=== PATIENT | female | born 1975 | race Caucasian/White ===

== ENCOUNTER 2017-05-22 10:27 | Outpatient (CLI) | payer OTHER ==
[~2017-05-22] VITALS: Ht 175.3 cm; Wt 79.8 kg
[2017-05-22 11:19] VITALS: BP 124/88
[2017-05-22 11:47] LABS: BASOPHILS # (AUTO) 0.1 10^3/uL (0.0-0.1); BASOPHILS % (AUTO) 1 % (0-10); EOSINOPHILS # (AUTO) 0.1 10^3/uL (0.0-0.3); EOSINOPHILS % (AUTO) 1 % (0-10); LYMPHOCYTES # (AUTO) 2.2 X 10^3 (1.0-4.0); LYMPHOCYTES % (AUTO) 29 % (12-44); MEAN CORPUSCULAR HEMOGLOBIN 32 PG (25-34); MEAN CORPUSCULAR HGB CONC 34 G/DL (32-36); MEAN CORPUSCULAR VOLUME 94 FL (80-99); MEAN PLATELET VOLUME 10.9 FL (7.4-10.4); MONOCYTES # (AUTO) 0.5 X 10^3 (0.0-1.0); MONOCYTES % (AUTO) 7 % (0-12); NEUTROPHILS # (AUTO) 4.9 X 10^3 (1.8-7.8); NEUTROPHILS % (AUTO) 63 % (42-75); PLATELET COUNT 192 10^3/uL (130-400); RED BLOOD COUNT 4.68 10^6/uL (4.35-5.85); RED CELL DISTRIBUTION WIDTH 12.2 % (10.0-14.5); WHITE BLOOD COUNT 7.7 10^3/uL (4.3-11.0)
[2017-05-23] MEDS ORDERED: IBUP-1773 PO ×2 (07:27)
[2017-05-23] MEDS ORDERED: Hydrocodone Bit/Acetaminophen PO ×2 (07:27)
[2017-05-23] MEDS ORDERED: SIME80TA16 PO ×2 (07:27)
[2017-05-23] MEDS ORDERED: DOCU100C37 PO ×2 (07:27)
== END 2017-05-22 16:13 | disposition home or self-care (01) ==
LOC: PREOP 10:27
PROVIDERS: ATTEND Obstetrics & Gynecology
DX: Z01.812 Encounter for preprocedural laboratory examination (principal); Z11.2 Encounter for screening for other bacterial diseases; R10.2 Pelvic and perineal pain; N93.9 Abnormal uterine and vaginal bleeding, unspecified; D25.9 Leiomyoma of uterus, unspecified
CPT/HCPCS: 36415; 85025; 87081

== ENCOUNTER 2017-05-23 06:00 | Day surgery (SDC) | payer OTHER ==
[~2017-05-23] VITALS: Ht 175.3 cm; Wt 79.8 kg
[2017-05-23] MEDS ORDERED: ROCURONIUM 50 MG/5 ML (ZEMURON) VIAL IV ONE (06:37)
[2017-05-23] MEDS ORDERED: DEXAMETHASONE 10 MG/ML (DECADRON) 1 ML VIAL ONE (06:37)
[2017-05-23] MEDS ORDERED: SEVOFLURANE (ULTANE) 15 ML INHAL SOLN ONE ×7 (06:37→08:36)
[2017-05-23] MEDS ORDERED: LIDOCAINE PF 2% 5 ML (XYLOCAINE) VIAL ONE (06:37)
[2017-05-23] MEDS ORDERED: ONDANSETRON 4 MG/2 ML (SDV) Z0FRAN ONE (06:37)
[2017-05-23] MEDS ORDERED: proPOfol 200 MG/20 ML (DIPRIVAN) VIAL IV ONE (06:37)
[2017-05-23] MEDS ORDERED: MIDAZOLAM 2 MG/2 ML (VERSED) VIAL ONE (06:38)
[2017-05-23] MEDS ORDERED: fentaNYL INJECTION 100 MCG/2 ML AMP ONE ×3 (06:38→09:01)
[2017-05-23] MEDS ORDERED: metroNIDAZOLE 500MG/100ML IVPB 100 ML IV ONE (06:45)
[2017-05-23] MEDS ORDERED: ceFAZolin 2 GM/50 ML NS 50 ML IV ONE (06:45)
[2017-05-23] MEDS ORDERED: metroNIDAZOLE 500MG/100ML IVPB 100 ML ONE (06:54)
[2017-05-23] MEDS ORDERED: ceFAZolin 2 GM/50 ML NS 50 ML ONE (06:54)
[2017-05-23] MEDS ORDERED: BUPIVACAINE 0.25% 30 ML (SENSORCAINE) VIAL ONE (07:08)
[2017-05-23] MEDS: LACTATED RINGERS 1,000 ML IV PRN ×2 (07:09→08:14)
[2017-05-23 07:19] VITALS: BP 121/81
--- NOTE | 2017-05-23 07:21 | Progress Note-Pre Operative ---
Pre-Operative Progress Note H&P Reviewed The H&P was reviewed, patient examined and no changes noted. Date Seen by Provider: May 23, 2017 Time Seen by Provider: 07:00 Date H&P Reviewed: May 23, 2017 Time H&P Reviewed: 07:05 Pre-Operative Diagnosis: CPP, Fibroid uterus TAI MACKEY DO May 23, 2017 7:21 am
--- NOTE | 2017-05-23 07:26 | Discharge Inst-Women's Service ---
Discharge Inst-Women's Serv Depart Medication/Instructions New, Converted or Re-Newed RX: RX on Chart Consults/Follow Up Additional Follow Up: Yes Orders/Referrals Dr. Elkins in 7-10 days and in 8 weeks Activity Activity: Activity as Tolerated Driving Instructions: You May Drive (do not drive this weekend, or while you are requiring hydrocodone for pain control) NO SMOKING: NO SMOKING Nothing Inside Vagina: No Douching, No [place], No Tampons Diet Discharge Diet: No Restrictions Symptoms to Report to : Bleeding Excessive, Pain Increased, Fever Over 101 Degrees F, Vaginal Bleeding Increase, Questions/Concerns For Any Problems or Questions: Contact Your Physician Skin/Wound Care Infection Signs and Symptoms: Increased Redness, Foul Odor of Wound, Increased Drainage, Skin Itchy or Has a Rash, Increased Swelling, Temperature Above 101 F Stitches/[place]/Dermabond: Dermabond, Care of Stitches Bathing Instructions: TAI Belcher DO May 23, 2017 07:26
[2017-05-23] MEDS ORDERED: DOCU100C37 PO ×2 (07:27)
[2017-05-23] MEDS ORDERED: Hydrocodone Bit/Acetaminophen PO ×2 (07:27)
[2017-05-23] MEDS ORDERED: SIME80TA16 PO ×2 (07:27)
[2017-05-23] MEDS ORDERED: IBUP-1773 PO ×2 (07:27)
[2017-05-23] MEDS ORDERED: ONDANSETRON 4 MG/2 ML (SDV) Z0FRAN IV PRN (07:30)
[2017-05-23] MEDS ORDERED: SIMETHICONE 80 MG (MYLICON) CHEW PO PRN (07:30)
[2017-05-23] MEDS ORDERED: HYDROmorphone (DILAUDID) 2 MG/ML VIAL IVP PRN (07:30)
[2017-05-23] MEDS ORDERED: ZOLPIDEM 5 MG (AMBIEN) TAB PO PRN (07:30)
[2017-05-23] MEDS ORDERED: CHLORASEPTIC LOZENGE MM PRN (07:30)
[2017-05-23] MEDS ORDERED: DOCUSATE SODIUM 100 MG (COLACE) CAP PO PRN (07:30)
[2017-05-23] MEDS ORDERED: ANTACID SUSP 30 ML UDC (MYLANTA) PO PRN (07:30)
[2017-05-23] MEDS ORDERED: MEPERIDINE (DEMEROL) INJ 50 MG/ML IVP PRN ×2 (07:45→12:45)
[2017-05-23] MEDS ORDERED: ONDANSETRON 4 MG/2 ML (SDV) Z0FRAN IVP PRN (07:45)
[2017-05-23] MEDS ORDERED: NEOSTIGMINE (BLOXIVERZ ) 1 MG/1ML 10 ML VIAL ONE (08:31)
[2017-05-23] MEDS ORDERED: GLYCOPYRROLATE 0.2 MG/ML (ROBINUL) 2 ML VIAL ONE (08:31)
[2017-05-23] MEDS: LACTATED RINGERS 1,000 ML IV SCH ×2 (09:34→11:28)
[2017-05-23] MEDS: KETOROLAC 30 MG/ML VIAL IV PRN ×2 (09:41→16:01)
[2017-05-23] MEDS: morphine INJ 10 MG/ML 1ML (SYR OR VIAL) IVP PRN ×2 (09:42→09:49)
[2017-05-23 10:33] VITALS: BP 124/71
[2017-05-23] MEDS: HYDROcodone/APAP 7.5 MG/325 MG (LORTAB, LORCET PLUS) TABLET PO PRN ×2 (12:41→17:30)
[2017-05-23] MEDS ORDERED: morphine INJ 10 MG/ML 1ML (SYR OR VIAL) IVP PRN (12:45)
--- NOTE | 2017-05-23 14:05 | OPERATIVE REPORT ---
DATE OF SERVICE: PREOPERATIVE DIAGNOSES: 1. A 42-year-old female with fibroid uterus. 2. Severe chronic pelvic pain. 3. Abnormal uterine bleeding. POSTOPERATIVE DIAGNOSES: 1. A 42-year-old female with fibroid uterus. 2. Severe chronic pelvic pain. 3. Abnormal uterine bleeding. PROCEDURE: Robotic-assisted total laparoscopic hysterectomy greater than 250 grams measuring 372 grams, a right salpingo-oophorectomy and a left salpingectomy. SURGEON: Sylvain Mackey DO ANESTHESIA: General endotracheal. EBL: Minimal. URINE OUTPUT: 75 mL, clear at the end of the procedure. FLUIDS: 1550 mL of lactated Ringer solution. FINDINGS: A bulky enlarged uterus measuring 372 grams on initial weight measurement in the OR. Grossly normal-appearing left ovary. Right ovary is cystic appearing in nature. Grossly normal bilateral fallopian tubes with evidence of previous tubal ligation. Adhesions of the sigmoid colon to the left adnexa and fallopian tube. SPECIMEN SENT: Uterus, bilateral fallopian tubes and right ovary. INDICATIONS FOR PROCEDURE: This 42-year-old female is a patient who initially came in for an annual well woman visit but was also dealing with chronic issues with pelvic pain . The patient is a nurse and works long shifts and would notice the longer throughout the shift she worked the more severe and significant her pelvic pain would be, to the point now that she is in so much pain That she was passing out at work. She has also noticed issues with her urinary frequency. The pelvic ultrasound revealed that there was a large 6 cm fibroid in the anterior left side of the uterus at the fundus, which could be compressing and pushing on her bladder. She is also noticing significant amount of discomfort with intercourse. We discussed more conservative management of fibroids including uterine artery embolization and Depo Lupron therapy; however, the patient wished to proceed with more definitive measures. She also had a family history of ovarian cancer; however, due to her smoking, I was hesitant to remove both of her ovaries and place the patient on hormone replacement therapy at this would be contraindicated with her smoking. So we discussed preservation of any normal-appearing ovarian structure; however removal of the remainder of the ovarian tissue and she was agreeable with this after the risk of possible ovarian cancer lifetime were reviewed with the patient. We discussed the risks of bleeding, infection, damage to any surrounding structures including, but not limited to bowel, bladder, ureter kidneys, pre and postoperative expectations, possible need for blood transfusion, risks from anesthesia, even , were discussed with the patient. We discussed with her the recovery timeframe and follow up. After all of her questions were answered, she was agreeable to proceed with robotic hysterectomy. It was scheduled at her next earliest convenience. In the preoperative area, it was reviewed with the patient, consent was obtained, and the patient was taken to the operating room. OPERATIVE REPORT IN DETAIL: Once in the operating room, general anesthesia was found to be adequate. She was placed in dorsal lithotomy position, prepped and draped in normal sterile fashion. A Tamayo catheter was placed using sterile technique. A weighted speculum was inserted in the patient's vagina. A right angle retractor was used to visualize the cervix and 0 Vicryl suture was placed in the anterior lip of the cervix and the retractor was removed. The suture was then left in place as my retraction point. I then gently sounded the uterine cavity, depth was found to be 8 cm. I selected an 8 cm Samantha uterine manipulator tip and a 4 cm colpotomy ring and assembled the Samantha uterine manipulator advancing the tip into the endometrial canal and deploying the balloon and advancing the colpotomy ring around the vaginal fornix. Once this was in place, manipulation was appreciated on bimanual examination. I removed all the other instruments from the patient's vagina and took my attention to the abdomen. After a change of gloves was performed, I infiltrated the area infraumbilically with 0.25% Marcaine and made an 8 mm incision using a knife. I directed a Veress needle through this incision until intraperitoneal placement was confirmed using a saline drop test. I proceeded with insufflation with CO2 gas and opening pressure of 6 mmHg was noted. I proceeded to maximum pressure of 15 mmHg and we planned to remove the Veress needle and introduce an 8-mm blunt da Jessy camera trocar. Once this was in place, I was able to confirm intraperitoneal placement using the da Jessy laparoscope. I then had the patient placed in steep Trendelenburg and able to visualize all the pelvic anatomy findings as described in my findings above. I then placed two lateral trocars approximately 8 cm lateral to my infraumbilical trocar. The skin was infiltrated with 0.25% Marcaine. Incisions were made with a knife and the trocars were placed under direct visualization of the laparoscope. Once these were in place without evidence of damage of any peritoneal structures, I then brought in the da Jessy robot and docked in the appropriate fashion, placing the vessel sealer in the left hand, the monopolar viola in the right hand. I then took my place at the operative console. I began the procedure by taking down filmy adhesions of the descending sigmoid colon to the left fallopian tube. Once these were taken down using monopolar shear, I then create a window in the left mesosalpinx using the monopolar viola and took this window laterally using the vessel sealer, amputating the fallopian tube from its surrounding connection of blood supply in the mesosalpinx. I then grasped the uteroovarian ligament. I bipolar cauterized this and transected it using the vessel sealer. I grasped the round ligament, bipolar cauterized this, and transected using the vessel sealer. I took the entire broad ligament at that point and took it down to the lower uterine segment using the vessel sealer, sealing and cutting using the sealer down the broad ligament. Once I was at the lower uterine segment, I separate the anterior and posterior leaflets of the broad ligament. The anterior leaf was taken down to the anterior vaginal fornix and the posterior leaf was taken down to the posterior vaginal fornix. This allowed me to skeletonize the uterine vessels laterally, which I bipolar cauterized and transected using the vessel sealer. I then took my attention to the right side where I grasped the infundibulopelvic ligament, bipolar cauterized and transected using the vessel sealer. I then grasped the round ligament, bipolar cauterized this and transected using the vessel sealer. I then was able to grasp the entire broad ligament and in a similar fashion, took it down to the lower uterine segment using the vessel sealer. I took the anterior leaflet around to my anterior vaginal fornix dissection from the left side and the posterior leaflet to the posterior vaginal fornix dissecting on the left side as well. This allowed me to skeletonize out the uterine vessels, which I bipolar cauterized and transected using the vessel sealer. I then performed a colpotomy at the 12 o'clock position using the monopolar viola and took this circumferentially around the vaginal fornix, amputating the cervix away from the vaginal fornix. The entire specimen was then removed in 1 piece through the vagina. I then proceeded to closing the vaginal cuff using 2-0 Vicryl suture in a [id number] fashion in the lateral vaginal apices, colposuspending them to the uterosacral ligaments. I then closed the remainder of the vaginal cuff using 2-0 V-Loc in a running fashion, after which there was no active bleeding noted from any of my dissection planes. I then undock the da Jessy robot and proceed with copiously irrigating the pelvis using normal saline. Once again there was no active bleeding from my dissection planes. I then placed FloSeal hemostatic agent over all my planes of dissection and have the patient taken out of steep Trendelenburg. In this process, I was able to visualize the appendix, which had some filmy adhesions to the right pelvic sidewall, but overall appeared normal. There was no density or nodularity noted. There was no thickening of the appendix either. At that point, I removed the lateral trocars under direct visualization of the laparoscope. The infraumbilical trocar was used to release insufflation and introduced 10 mL of 0.25% Marcaine into the peritoneal cavity for postoperative pain management. I then removed this trocar as well and closed the incision using 4-0 Monocryl in interrupted subcuticular stitches. Dermabond was applied to the incision and Band-Aids were placed over these. A Tamayo catheter was left in place. The patient tolerated the procedure well, sent to recovery in stable condition. Lap and sponge counts correct at the end of the procedure. Instrument count was correct as well. Two grams of Ancef and 500 mg of Flagyl were given preoperatively for infection prophylaxis. Job ID: [id number] DocumentID: [id number] Dictated Date: 05/23/2017 09:44:07 Coating Operator Date: 05/23/2017 12:22:06 Dictated By: SYLVAIN MACKEY DO
[2017-05-23 15:16] VITALS: BP 102/61
[2017-05-24] MEDS ORDERED: IBUPROFEN 600 MG (MOTRIN) TAB PO PRN
== END 2017-05-23 17:35 | disposition home or self-care (01) ==
LOC: SDC 06:00 → WS 10:20 → SDC 17:35
PROVIDERS: ATTEND Obstetrics & Gynecology
DX: D25.1 Intramural leiomyoma of uterus (principal); N80.0 Endometriosis of uterus; N83.11 Corpus luteum cyst of right ovary; N83.8 Other noninflammatory disorders of ovary, fallopian tube and broad ligament; N93.9 Abnormal uterine and vaginal bleeding, unspecified; R10.2 Pelvic and perineal pain; F17.210 Nicotine dependence, cigarettes, uncomplicated; Z80.41 Family history of malignant neoplasm of ovary
CPT/HCPCS: 84703; 86850; 86900; 86901; 94664

== ENCOUNTER 2020-01-01 09:36 | Emergency (ER) | payer OTHER ==
[~2020-01-01] VITALS: Ht 175 cm; Wt 70.0 kg
[~2020-01-01 09:36] MED LIST: DOCU100C37 PO; Hydrocodone Bit/Acetaminophen PO; IBUP-1773 PO; SIME80TA16 PO
[2020-01-01 09:45] VITALS: BP 140/70
--- NOTE | 2020-01-01 09:54 | ED Upper Extremity ---
General Chief Complaint: Laceration Stated Complaint: HAND LAC Source: patient History of Present Illness Date Seen by Provider: Jan 01, 2020 Time Seen by Provider: 09:48 Initial Comments 44-year-old female right handed was using a knife slipped causing a laceration to her ventral left index finger No other injury sustained aside from left index finger but did much better as time progressed and her complaints are limited to the index finger no deformity no swelling or ecchymosis Allergies and Home Medications Allergies Coded Allergies: No Known Drug Allergies (Unverified , 05/22/17) Home Medications Docusate Sodium 100 Mg Capsule, 100 MG PO BID PRN for CONSTIPATION-1ST LINE Prescribed by: TAI MACKEY on 05/23/17726 Ibuprofen 600 Mg Tablet, 600 MG PO Q6H PRN for PAIN-MODERATE Prescribed by: TAI MACKEY on 05/23/17726 Simethicone 80 Mg Tab.chew, 40 MG PO TID PRN for INDIGESTION 2ND LINE Prescribed by: TAI MACKEY on 05/23/17726 [Hydrocodone Bit/Acetaminophen] 1 EA TABLET, 2 EA PO Q6H PRN for Pain-See Instructions Prescribed by: TAI MACKEY on 05/23/17726 Patient Home Medication List Home Medication List Reviewed: Yes Review of Systems Constitutional: no symptoms reported EENTM: no symptoms reported Respiratory: no symptoms reported Cardiovascular: no symptoms reported Gastrointestinal: no symptoms reported Genitourinary: no symptoms reported Musculoskeletal: other (2 cm laceration ventral left index finger just proximal to the PIP) Skin: no symptoms reported Psychiatric/Neurological: No Symptoms Reported Past Pxrclfh-Cchpqk-Qpispa Hx Patient Social History Alcohol Use: Denies Use Recreational Drug Use: No Smoking Status: Former Smoker Type Used: Cigarettes 2nd Hand Smoke Exposure: No Recent Hopitalizations: No Physical Abuse: No Sexual Abuse: No Mistreated: No Fear: No Immunizations Up To Date Tetanus Booster (TDap): Unknown Date of Influenza Vaccine: Feb 18, 2017 Seasonal Allergies Seasonal Allergies: No Past Medical History Surgeries: Yes (BREAST AUGMENTATION, LEFT KNEE, SINGE OOPHARECTOMY) Tubal Ligation Respiratory: No Cardiac: No Neurological: No Reproductive Disorders: Yes (FIBROID UTERUS AND PELVIC PAIN) Female Reproductive Disorders: Denies REFRIGERATOR CRATER History: Tubal Ligation Sexually Transmitted Disease: No HIV/AIDS: No Genitourinary: No Gastrointestinal: No Musculoskeletal: No Endocrine: No HEENT: No Loss of Vision: Bilateral Hearing Impairment: Denies Cancer: No Psychosocial: No Integumentary: No Blood Disorders: No Adverse Reaction/Blood Tranf: No (N/A) Physical Exam Vital Signs Vital Signs - First Documented 01/01/20 09:45 Temp 36.4 Pulse 70 Resp 18 B/P (MAP) 140/70 (93) Pulse Ox 99 O2 Delivery Room Air Capillary Refill : Height, Weight, BMI Height: 5'9.00" Weight: 176lbs. 0.0oz. [id number]; 26.0 BMI Method: General Appearance: WD/WN, mild distress HEENT: PERRL/EOMI Neck: supple Cardiovascular: regular rate, rhythm Respiratory: lungs clear Gastrointestinal: normal bowel sounds, non tender, soft Hand: Left, bone tenderness, deformity, ecchymosis (2cm lac ventral index just prox to PIP small slit dorsal pt says knife went through flexion good distal sensation intact) Procedures/Interventions Wound Location: Upper Extremities Wound Length (cm): 3 Wound's Depth, Shape: linear Wound Explored: clean Anesthesia: 1% Lidocaine Volume Anesthetic (ccs): 4 Suture: Ethlion Suture Size: 4-0 Number of Sutures: 3 Progress/Results/Core Measures Results/Orders My Orders Orders - MAURICIO PURI MD Tetanus/Diphtheria Inj (Adult) (Tenivac (01/01/20 10:15) Vital Signs/I&O 01/01/20 09:45 Temp 36.4 Pulse 70 Resp 18 B/P (MAP) 140/70 (93) Pulse Ox 99 O2 Delivery Room Air Departure Impression Primary Impression: Laceration Disposition: 01 HOME, SELF-CARE Condition: Improved Departure-Patient Inst. Decision time for Depature: 10:18 Referrals: NO,LOCAL PHYSICIAN (PCP/Family) Primary Care Physician Patient Instructions: Laceration Repair With Stitches (DC) Add. Discharge Instructions: Please keep the initial dressing on the first 48 hours Stitches should be removed in about 10 days Work/School Note: Work Release Form MAURICIO PURI MD Jan 01, 2020 09:54
[2020-01-01] MEDS ORDERED: TETANUS & DIPHTHERIA TOX,ADULT 0.5 ML (TENIVAC) IM ONE (10:15)
--- OUTSIDE RECORDS SUMMARY | 2020-01-01 11:13 | XMS REPORT | Continuity of Care Document ---
Author Organization Unknown Address Unknown Phone Unavailable Allergies Active Description Code Type Severity Reaction Onset Reported/Identified Relationship to Patient Clinical Status Yes No Known Drug Allergies [id number] Drug Allergy Unknown N/A 05/22/2017 Medications There is no data. Problems Date Dx Coded Attending Type Code Diagnosis Diagnosed By 04/17/2017 TAI MACKEY DO Ot D25.1 INTRAMURAL LEIOMYOMA OF UTERUS 04/17/2017 TAI MACKEY DO Ot N93.8 OTHER SPECIFIED ABNORMAL UTERINE AND VAG 04/17/2017 TAI MACKEY DO Ot R53.83 OTHER FATIGUE 04/17/2017 TAI MACKEY DO Ot Z13.220 ENCOUNTER FOR SCREENING FOR LIPOID DISOR 04/17/2017 TAI MACKEY DO Ot Z13.29 ENCOUNTER FOR SCREENING FOR OTH SUSPECTE 04/19/2017 TAI MACKEY DO Ot N83.201 UNSPECIFIED OVARIAN CYST, RIGHT SIDE 04/19/2017 TAI MACKEY DO Ot R93.8 ABNORMAL FINDINGS ON DIAGNOSTIC IMAGING 04/19/2017 TAI MACKEY DO Ot Z12.31 ENCNTR SCREEN MAMMOGRAM FOR MALIGNANT NE 05/22/2017 TAI MACKEY DO Ot D25.9 LEIOMYOMA OF UTERUS, UNSPECIFIED 05/22/2017 TAI MACKEY DO Ot N93.9 ABNORMAL UTERINE AND VAGINAL BLEEDING, U 05/22/2017 TAI MACKEY DO Ot R10.2 PELVIC AND PERINEAL PAIN 05/22/2017 TAI MACKEY DO Ot Z01.812 ENCOUNTER FOR PREPROCEDURAL LABORATORY E 05/22/2017 TAI MACKEY DO Ot Z11.2 ENCOUNTER FOR SCREENING FOR OTHER BACTER 05/23/2017 TAI MACKEY DO Ot D25.1 INTRAMURAL LEIOMYOMA OF UTERUS 05/23/2017 TAI MACKEY DO Ot F17.210 NICOTINE DEPENDENCE, CIGARETTES, UNCOMPL 05/23/2017 TAI MACKEY DO Ot N80.0 ENDOMETRIOSIS OF UTERUS 05/23/2017 TAI MACKEY DO Ot N83.11 CORPUS LUTEUM CYST OF RIGHT OVARY 05/23/2017 TAI MACKEY DO Ot N83.8 OTH NONINFLAMMATORY DISORD OF OVARY, FAL 05/23/2017 TAI MACKEY DO Ot N93.9 ABNORMAL UTERINE AND VAGINAL BLEEDING, U 05/23/2017 TAI MACKEY DO Ot R10.2 PELVIC AND PERINEAL PAIN 05/23/2017 TAI MACKEY DO Ot Z80.41 FAMILY HISTORY OF MALIGNANT NEOPLASM OF 05/27/2017 TAI MACKEY DO Ot D25.9 LEIOMYOMA OF UTERUS, UNSPECIFIED 05/27/2017 TAI MACKEY DO Ot N93.9 ABNORMAL UTERINE AND VAGINAL BLEEDING, U 05/27/2017 TAI MACKEY DO Ot R10.2 PELVIC AND PERINEAL PAIN 05/27/2017 TAI MACKEY DO Ot Z01.812 ENCOUNTER FOR PREPROCEDURAL LABORATORY E 05/27/2017 TAI MACKEY DO Ot Z11.2 ENCOUNTER FOR SCREENING FOR OTHER BACTER 05/27/2017 TAI MACKEY DO Ot D25.1 INTRAMURAL LEIOMYOMA OF UTERUS 05/27/2017 TAI MACKEY DO Ot F17.210 NICOTINE DEPENDENCE, CIGARETTES, UNCOMPL 05/27/2017 TAI MACKEY DO Ot N80.0 ENDOMETRIOSIS OF UTERUS 05/27/2017 TAI MACKEY DO Ot N83.11 CORPUS LUTEUM CYST OF RIGHT OVARY 05/27/2017 TAI MACKEY DO Ot N83.8 OTH NONINFLAMMATORY DISORD OF OVARY, FAL 05/27/2017 TAI MACKEY DO Ot N93.9 ABNORMAL UTERINE AND VAGINAL BLEEDING, U 05/27/2017 TAI MACKEY DO Ot R10.2 PELVIC AND PERINEAL PAIN 05/27/2017 TAI MACKEY DO Ot Z80.41 FAMILY HISTORY OF MALIGNANT NEOPLASM OF 12/30/2017 TAI MACKEY DO Ot N83.201 UNSPECIFIED OVARIAN CYST, RIGHT SIDE 12/30/2017 TAI MACKEY DO Ot R93.8 ABNORMAL FINDINGS ON DIAGNOSTIC IMAGING 12/30/2017 TAI MACKEY DO Ot Z12.31 ENCNTR SCREEN MAMMOGRAM FOR MALIGNANT NE 12/30/2017 TAI MACKEY DO Ot D25.1 INTRAMURAL LEIOMYOMA OF UTERUS 12/30/2017 FENECH DO, TAI S Ot N93.8 OTHER SPECIFIED ABNORMAL UTERINE AND VAG 12/30/2017 FENECH DO, TAI S Ot R53.83 OTHER FATIGUE 12/30/2017 FENECH DO, TAI S Ot Z13.220 ENCOUNTER FOR SCREENING FOR LIPOID DISOR 12/30/2017 FENECH DO, TAI S Ot Z13.29 ENCOUNTER FOR SCREENING FOR OTH SUSPECTE 03/10/2018 FENECH DO, TAI S Ot N83.201 UNSPECIFIED OVARIAN CYST, RIGHT SIDE 03/10/2018 FENECH DO, TAI S Ot R93.8 ABNORMAL FINDINGS ON DIAGNOSTIC IMAGING 03/10/2018 FENECH DO, TAI S Ot Z12.31 ENCNTR SCREEN MAMMOGRAM FOR MALIGNANT NE 03/10/2018 FENECH DO, TAI S Ot D25.1 INTRAMURAL LEIOMYOMA OF UTERUS 03/10/2018 FENECH DO, TAI S Ot N93.8 OTHER SPECIFIED ABNORMAL UTERINE AND VAG 03/10/2018 FENECH DO, TAI S Ot R53.83 OTHER FATIGUE 03/10/2018 FENECH DO, TAI S Ot Z13.220 ENCOUNTER FOR SCREENING FOR LIPOID DISOR 03/10/2018 FENECH DO, TAI S Ot Z13.29 ENCOUNTER FOR SCREENING FOR OTH SUSPECTE 03/11/2018 FENECH DO, TAI S Ot N83.201 UNSPECIFIED OVARIAN CYST, RIGHT SIDE 03/11/2018 FENECH DO, TAI S Ot R93.8 ABNORMAL FINDINGS ON DIAGNOSTIC IMAGING 03/11/2018 FENECH DO, TAI S Ot Z12.31 ENCNTR SCREEN MAMMOGRAM FOR MALIGNANT NE 03/11/2018 FENECH DO, TAI S Ot D25.1 INTRAMURAL LEIOMYOMA OF UTERUS 03/11/2018 FENECH DO, TAI S Ot N93.8 OTHER SPECIFIED ABNORMAL UTERINE AND VAG 03/11/2018 FENECH DO, TAI S Ot R53.83 OTHER FATIGUE 03/11/2018 FENECH DO, TAI S Ot Z13.220 ENCOUNTER FOR SCREENING FOR LIPOID DISOR 03/11/2018 FENECH DO, TAI S Ot Z13.29 ENCOUNTER FOR SCREENING FOR OTH SUSPECTE 06/13/2018 FENECH DO, TAI S Ot N83.201 UNSPECIFIED OVARIAN CYST, RIGHT SIDE 06/13/2018 FENECH DO, TAI S Ot R93.8 ABNORMAL FINDINGS ON DIAGNOSTIC IMAGING 06/13/2018 FENECH DO, TAI S Ot Z12.31 ENCNTR SCREEN MAMMOGRAM FOR MALIGNANT NE 06/13/2018 FENECH DO, TAI S Ot D25.1 INTRAMURAL LEIOMYOMA OF UTERUS 06/13/2018 FENECH DO, TAI S Ot N93.8 OTHER SPECIFIED ABNORMAL UTERINE AND VAG 06/13/2018 FENECH DO, TAI S Ot R53.83 OTHER FATIGUE 06/13/2018 FENECH DO, TAI S Ot Z13.220 ENCOUNTER FOR SCREENING FOR LIPOID DISOR 06/13/2018 FENECH DO, TAI S Ot Z13.29 ENCOUNTER FOR SCREENING FOR OTH SUSPECTE 06/13/2018 FENECH DO, TAI S Ot N83.201 UNSPECIFIED OVARIAN CYST, RIGHT SIDE 06/13/2018 FENECH DO, TAI S Ot R93.8 ABNORMAL FINDINGS ON DIAGNOSTIC IMAGING 06/13/2018 FENECH DO, TAI S Ot Z12.31 ENCNTR SCREEN MAMMOGRAM FOR MALIGNANT NE 06/13/2018 FENECH DO, TAI S Ot D25.1 INTRAMURAL LEIOMYOMA OF UTERUS 06/13/2018 FENECH DO, TAI S Ot N93.8 OTHER SPECIFIED ABNORMAL UTERINE AND VAG 06/13/2018 FENECH DO, TAI S Ot R53.83 OTHER FATIGUE 06/13/2018 FENECH DO, TAI S Ot Z13.220 ENCOUNTER FOR SCREENING FOR LIPOID DISOR 06/13/2018 FENECH DO, TAI S Ot Z13.29 ENCOUNTER FOR SCREENING FOR OTH SUSPECTE 06/30/2018 FENECH DO, TAI S Ot N83.201 UNSPECIFIED OVARIAN CYST, RIGHT SIDE 06/30/2018 FENECH DO, TAI S Ot R93.8 ABNORMAL FINDINGS ON DIAGNOSTIC IMAGING 06/30/2018 FENECH DO, TAI S Ot Z12.31 ENCNTR SCREEN MAMMOGRAM FOR MALIGNANT NE 06/30/2018 FENECH DO, TAI S Ot D25.1 INTRAMURAL LEIOMYOMA OF UTERUS 06/30/2018 FENECH DO, TAI S Ot N93.8 OTHER SPECIFIED ABNORMAL UTERINE AND VAG 06/30/2018 FENECH DO, TAI S Ot R53.83 OTHER FATIGUE 06/30/2018 FENECH DO, TAI S Ot Z13.220 ENCOUNTER FOR SCREENING FOR LIPOID DISOR 06/30/2018 FENECH DO, TAI S Ot Z13.29 ENCOUNTER FOR SCREENING FOR OTH SUSPECTE 08/05/2018 FENECH DO, TAI S Ot N83.201 UNSPECIFIED OVARIAN CYST, RIGHT SIDE 08/05/2018 FENECH DO, TAI S Ot R93.8 ABNORMAL FINDINGS ON DIAGNOSTIC IMAGING 08/05/2018 TAI MACEKY DO Ot Z12.31 ENCNTR SCREEN MAMMOGRAM FOR MALIGNANT NE 08/05/2018 TAI MACKEY DO Ot D25.1 INTRAMURAL LEIOMYOMA OF UTERUS 08/05/2018 TAI MACKEY DO Ot N93.8 OTHER SPECIFIED ABNORMAL UTERINE AND VAG 08/05/2018 TAI MACKEY DO Ot R53.83 OTHER FATIGUE 08/05/2018 TAI MACKEY DO Ot Z13.220 ENCOUNTER FOR SCREENING FOR LIPOID DISOR 08/05/2018 TAI MACKEY DO Ot Z13.29 ENCOUNTER FOR SCREENING FOR OTH SUSPECTE Procedures There is no data. Results Test Result Range Complete blood count (CBC) with automate d white blood cell (WBC) differential - 04/16/17 06:10 Blood leukocytes automated count (number/volume) 7.3 10*3/uL 4.3-11.0 Blood erythrocytes automated count (number/volume) 4.61 10*6/uL 4.35-5.85 Venous blood hemoglobin measurement (mass/volume) 14.9 g/dL 11.5-16.0 Blood hematocrit (volume fraction) 44 % 35-52 Automated erythrocyte mean corpuscular volume 94 [ foz_us] 80-99 Automated erythrocyte mean corpuscular h emoglobin (mass per erythrocyte) 32 pg 25-34 Automated erythrocyte mean corpuscular h emoglobin concentration measurement (mass/volume) 34 g/dL 32-36 Automated erythrocyte distribution width ratio 12. 6 % 10.0- 14.5 Automated blood platelet count (count/volume) 183 10*3/uL 130-400 Automated blood platelet mean volume measurement 10.2 [foz_us] 7.4-10.4 Automated blood neutrophils/100 leukocytes 61 % 42-75 Automated blood lymphocytes/100 leukocytes 31 % 12-44 Blood monocytes/100 leukocytes 7 % 0-12 Automated blood eosinophils/100 leukocytes 1 % 0-10 Automated blood basophils/100 leukocytes 1 % 0-10 Blood neutrophils automated count (number/volume) 4.4 10*3 1.8-7.8 Blood lymphocytes automated count (number/volume) 2.2 10*3 1.0-4.0 Blood monocytes automated count (number/volume) 0. 5 10*3 0.0-1.0 Automated eosinophil count 0.1 10*3/uL 0 .0-0.3 Automated blood basophil count (count/volume) 0.0 10*3/uL 0.0-0.1 Comprehensive metabolic panel - 04/16/17 06:10 Serum or plasma sodium measurement (moles/volume) 142 mmol/L 135-145 Serum or plasma potassium measurement (moles/volume) 4.0 mmol/L 3.6-5.0 Serum or plasma chloride measurement (moles/volume) 109 mmol/L 98-107 Carbon dioxide 23 mmol/L 21-32 Serum or plasma anion gap determination (moles/volume) 10 mmol/L 5-14 Serum or plasma urea nitrogen measurement (mass/volume ) 10 mg/dL 7-18 Serum or plasma creatinine measurement (mass/volume) 0.68 mg/dL 0.60-1.30 Serum or plasma urea nitrogen/creatinine mass ratio 15 NRG Serum or plasma creatinine measurement w ith calculation of estimated glomerular filtration rate > NRG Serum or plasma glucose measurement (mass/volume) 93 mg/dL 70-105 Serum or plasma calcium measurement (mass/volume) 9.1 mg/dL 8.5-10.1 Serum or plasma total bilirubin measurement (mass/volu me) 0.5 mg/dL 0.1-1.0 Serum or plasma alkaline phosphatase luz surement (enzymatic activity/volume) 64 U/L 40-136 Serum or plasma aspartate aminotransfera se measurement (enzymatic activity/volume) 18 U/L 5-34 Serum or plasma alanine aminotransferase measurement (enzymatic activity/volume) 18 U/L 0-55 Serum or plasma protein measurement (mass/volume) 6.8 g/dL 6.4-8.2 Serum or plasma albumin measurement (mass/volume) 4.1 g/dL 3.2-4.5 Lipid 1996 panel - 04/16/17 06:10 Serum or plasma triglyceride measurement (mass/volume) 171 mg/dL <150 Serum or plasma cholesterol measurement (mass/volume) 172 mg/dL < 200 Serum or plasma cholesterol in HDL measurement (mass/v olume) 41 mg/dL 40-60 Cholesterol in LDL [mass/volume] in serum or plasma by direct assay 105 mg/dL 1-129 Serum or plasma cholesterol in VLDL measurement (mass/ volume) 34 mg/dL 5-40 Hemoglobin A1c - 04/16/17 06:10 Hemoglobin A1c 5.1 % 4.5-6.2 THYROID STIMULATING HORMONE - 04/16/17 0 6:10 THYROID STIMULATING HORMONE 1.30 u[iU]/mL 0.35-4.94 Complete blood count (CBC) with automate d white blood cell (WBC) differential - 05/22/17 11:25 Blood leukocytes automated count (number/volume) 7.7 10*3/uL 4.3-11.0 Blood erythrocytes automated count (number/volume) 4.68 10*6/uL 4.35-5.85 Venous blood hemoglobin measurement (mass/volume) 15.1 g/dL 11.5-16.0 Blood hematocrit (volume fraction) 44 % 35-52 Automated erythrocyte mean corpuscular volume 94 [ foz_us] 80-99 Automated erythrocyte mean corpuscular h emoglobin (mass per erythrocyte) 32 pg 25-34 Automated erythrocyte mean corpuscular h emoglobin concentration measurement (mass/volume) 34 g/dL 32-36 Automated erythrocyte distribution width ratio 12. 2 % 10.0- 14.5 Automated blood platelet count (count/volume) 192 10*3/uL 130-400 Automated blood platelet mean volume measurement 10.9 [foz_us] 7.4-10.4 Automated blood neutrophils/100 leukocytes 63 % 42-75 Automated blood lymphocytes/100 leukocytes 29 % 12-44 Blood monocytes/100 leukocytes 7 % 0-12 Automated blood eosinophils/100 leukocytes 1 % 0-10 Automated blood basophils/100 leukocytes 1 % 0-10 Blood neutrophils automated count (number/volume) 4.9 10*3 1.8-7.8 Blood lymphocytes automated count (number/volume) 2.2 10*3 1.0-4.0 Blood monocytes automated count (number/volume) 0. 5 10*3 0.0-1.0 Automated eosinophil count 0.1 10*3/uL 0 .0-0.3 Automated blood basophil count (count/volume) 0.1 10*3/uL 0.0-0.1 Blood type T Indirect antibody screen pa matilde - 05/22/17 11:25 ABO+Rh group OP NRG Blood group antibody screen NEGATIVE NR G Methicillin resistant Staphylococcus aur eus (MRSA) screening culture - 05/22/17 11:25 Methicillin resistant Staphylococcus aureus (MRSA) scr eening culture NEG NRG Urine beta human chorionic gonadotropin (hCG) measurement - 05/23/17 06:20 Urine beta human chorionic gonadotropin (hCG) measurem ent NEGATIVE NEGATIVE Encounters ACCT No. Visit Date/Time Discharge Status Pt. Type Provider Facility Loc./Unit Complaint [id number] 05/23/2017 06:00:00 017 17:35:00 DIS Outpatient TAI MACKEY DO [facility] SDC FIBROID UTERUS,PELVIC PAIN,AUB [id number] 05/22/2017 10:27:00 017 16:13:00 DIS Outpatient TAI MACKEY DO [facility] PREOP FIBROID UTERUS,PELVIC PAIN,AUB [id number] 04/18/2017 12:27:00 017 23:59:59 CLS Outpatient TAI MACKEY DO [facility] RAD CHRONIC PELVIC PAIN,SC REENING [id number] 04/16/2017 05:59:00 017 23:59:59 CLS Outpatient TAI MACKEY DO [facility] LAB LETHARGY,HYPERLIPIDEMI A,UTERINE BLEEDING
== END 2020-01-01 10:26 | disposition home or self-care (01) ==
LOC: EDUNIT# 09:36 → ER FS 09:38
DX: S61.211A Laceration without foreign body of left index finger without damage to nail, initial encounter (principal); Z87.891 Personal history of nicotine dependence; Z23 Encounter for immunization; W26.0XXA Contact with knife, initial encounter
CPT/HCPCS: 12041; 64450; 90714

== ENCOUNTER → 2020-02-24 | Outpatient (CLI) | payer OTHER | LOC: LAB FS 13:17 | PROVIDERS: ATTEND Family Medicine | DX: R05 Cough (principal); R06.02 Shortness of breath; Z20.828 Contact with and (suspected) exposure to other viral communicable diseases ==

== ENCOUNTER 2021-04-03 05:48 | Outpatient (CLI) | payer OTHER ==
[~2021-04-03] VITALS: Ht 175.7 cm; Wt 75.8 kg
[2021-04-04] MEDS ORDERED: ESTR1TAB24 PO (12:29)
== END 2021-04-04 12:46 | disposition home or self-care (01) ==
LOC: PREOP 05:48
PROVIDERS: ATTEND Obstetrics & Gynecology
DX: Z01.818 Encounter for other preprocedural examination (principal)

== ENCOUNTER 2021-04-07 07:52 | Day surgery (SDC) | payer OTHER ==
[2021-04-07] VITALS (11 sets, daily range): BP systolic 90–131; BP diastolic 56–95
[~2021-04-07] VITALS: Ht 175.7 cm; Wt 75.8 kg
[~2021-04-07 07:52] MED LIST changes: +ESTR1TAB24 PO
[2021-04-07] MEDS ORDERED: ceFAZolin INJECTION 1,000 MG in WATER (STERILE) FOR INJECTION 10 ML IV ONE (08:00)
[2021-04-07] MEDS: LACTATED RINGERS 1,000 ML IV PRN ×2 (08:20→09:53)
[2021-04-07 08:29] LABS: BASOPHILS # (AUTO) 0.1 10^3/uL (0.0-0.1); BASOPHILS % (AUTO) 1 % (0-10); EOSINOPHILS # (AUTO) 0.1 10^3/uL (0.0-0.3); EOSINOPHILS % (AUTO) 1 % (0-10); HEMATOCRIT 46 % (35-52); HEMOGLOBIN 15.5 g/dL (11.5-16.0); LYMPHOCYTES # (AUTO) 2.1 10^3/uL (1.0-4.0); LYMPHOCYTES % (AUTO) 30 % (12-44); MEAN CORPUSCULAR HEMOGLOBIN 33 pg (25-34); MEAN CORPUSCULAR HGB CONC 34 g/dL (32-36); MEAN CORPUSCULAR VOLUME 97 fL (80-99); MEAN PLATELET VOLUME 10.2 fL (9.0-12.2); MONOCYTES # (AUTO) 0.6 10^3/uL (0.0-1.0); MONOCYTES % (AUTO) 8 % (0-12); NEUTROPHILS # (AUTO) 4.1 10^3/uL (1.8-7.8); NEUTROPHILS % (AUTO) 60 % (42-75); PLATELET COUNT 191 10^3/uL (130-400); WHITE BLOOD COUNT 6.9 10^3/uL (4.3-11.0)
[2021-04-07] MEDS ORDERED: FAMOTIDINE 20MG/2ML IV (PEPCID) ONE (08:33)
[2021-04-07] MEDS ORDERED: ONDANSETRON 4 MG/2 ML (SDV) Z0FRAN ONE ×2 (08:33→09:42)
--- NOTE | 2021-04-07 09:03 | Progress Note-Pre Operative ---
Pre-Operative Progress Note H&P Reviewed The H&P was reviewed, patient examined and no changes noted. Date Seen by Provider: Apr 07, 2021 Time Seen by Provider: 09:03 Date H&P Reviewed: Apr 07, 2021 Time H&P Reviewed: 09:03 Pre-Operative Diagnosis: RENU HARTLEY MD Apr 07, 2021 09:03
--- NOTE | 2021-04-07 09:06 | Progress Note-Post Operative ---
Post-Operative Progess Note Surgeon (s)/Contact Acid Plant Operator (s) Surgeon RENU FITZGERALD MD Contact Acid Plant Operator: MARGIE QURESHI MD Pre-Operative Diagnosis TRE Post-Operative Diagnosis SAME Procedure & Operative Findings Date of Procedure 04/07/21 Procedure Performed/Findings PVS AND CYSTOSCOPY Anesthesia Type GENERAL Estimated Blood Loss Estimated blood loss (mL): NEGLIGIBLE Specimens/Packing Specimens Removed NONE Packing: VAG PACK RENU FITZGERALD MD Apr 07, 2021 09:06
[2021-04-07] MEDS ORDERED: ESTRADIOL VAGINAL CREAM 42.5 GM (ESTRACE) VG ONE ×2 (09:08→10:41)
[2021-04-07] MEDS ORDERED: ONDANSETRON 4 MG/2 ML (SDV) Z0FRAN IV ONE (09:15)
[2021-04-07] MEDS ORDERED: FAMOTIDINE 20MG/2ML IV (PEPCID) IV ONE (09:15)
--- NOTE | 2021-04-07 09:27 | Progress Note-Pre Operative ---
Pre-Operative Progress Note H&P Reviewed The H&P was reviewed, patient examined and no changes noted. Date Seen by Provider: Apr 07, 2021 Time Seen by Provider: : Date H&P Reviewed: Apr 07, 2021 Time H&P Reviewed: : Pre-Operative Diagnosis: Vaginal prolapse and TRE MARGIE QURESHI MD Apr 07, 2021 09:27
--- NOTE | 2021-04-07 09:28 | Progress Note-Post Operative ---
Post-Operative Progess Note Surgeon (s)/Ultrasonic Tester (s) Surgeon MARGIE QURESHI MD Ultrasonic Tester: MARGIE QURESHI MD Pre-Operative Diagnosis Vaginal prolapse and TRE Post-Operative Diagnosis same Procedure & Operative Findings Date of Procedure 04/07/21 Procedure Performed/Findings A&P repairs with Enterocele repair Anesthesia Type gen Estimated Blood Loss Estimated blood loss (mL): 200 cc Specimens/Packing Specimens Removed right labia exophytic lesion Packing: VAG PACK MARGIE QURESHI MD Apr 07, 2021 09:28
[2021-04-07] MEDS ORDERED: ESTROGENS CONJ INJECTION 25 MG in WATER (STERILE) FOR INJECTION 5 ML IV ONE (09:30)
[2021-04-07] MEDS ORDERED: KETOROLAC 30 MG/ML VIAL IVP SCH (09:30)
[2021-04-07] MEDS ORDERED: BENZOCAINE/MENTHOL (DERMOPLAST) 56 ML CAN TP PRN (09:30)
[2021-04-07] MEDS ORDERED: ONDANSETRON 4 MG/2 ML (SDV) Z0FRAN IVP PRN ×3 (09:30→11:15)
[2021-04-07] MEDS ORDERED: fentaNYL INJ 100 MCG/2 ML AMP IVP PRN (09:30)
[2021-04-07] MEDS ORDERED: fentaNYL INJ 100 MCG/2 ML AMP ONE ×2 (09:30→10:20)
[2021-04-07] MEDS ORDERED: MIDAZOLAM 2 MG/2 ML (VERSED) VIAL ONE (09:31)
[2021-04-07] MEDS ORDERED: OXYC1TAB87 PO (09:32)
[2021-04-07] MEDS ORDERED: DOCU100C37 PO (09:32)
[2021-04-07] MEDS ORDERED: IBUP-1780 PO (09:32)
--- NOTE | 2021-04-07 09:33 | Discharge Inst-Surgical ---
Discharge Inst-Surgical Depart Medication/Instructions New, Converted or Re-Newed RX: Transmitted to Pharmacy Consults/Follow Up Patient Instructions: as directed Orders & Referrals Follow Up Appt: Call to make follow up appt. for patient in 4 weeks Or before April 21, 2021. Activity: Rest for 24 hours, than as tolerated. Diet: As tolerated may shower or tub bathe as desired. No driving for 24 hours, no alcoholic beverages for 24 hours, and nothing per vagina (no tampons, douching, or intercourse) for 4 weeks. Patient to return to the clinic as soon as possible for: Temperature greater than 101F, Severe Pain, Foul discharge from incision or vagina, Excessive Bleeding (more than a period). Activity Activity as Tolerated: No Diet Discharge Diet: No Restrictions MARGIE QURESHI MD Apr 07, 2021 09:33
[2021-04-07] MEDS ORDERED: LIDOCAINE PF 2% 5 ML (XYLOCAINE) VIAL ONE (09:42)
[2021-04-07] MEDS ORDERED: proPOfol 200 MG/20 ML (DIPRIVAN) VIAL IV ONE (09:42)
--- NOTE | 2021-04-07 11:02 | Anesthesia-General Post-Op ---
General Patient Condition Mental Status/LOC: Same as Preop Cardiovascular: Satisfactory Nausea/Vomiting: Absent Respiratory: Satisfactory Pain: Controlled Complications: Absent Post Op Complications Complications None Follow Up Care/Instructions Patient Instructions None needed. Anesthesia/Patient Condition Patient Condition Patient is doing well, no complaints, stable vital signs, no apparent adverse anesthesia problems. No complications reported per nursing. TIFFANY VAZQUEZ CRNA Apr 07, 2021 11:02
[2021-04-07] MEDS ORDERED: HYDROmorphone 2 MG/ML VIAL (DILAUDID) ONE (11:04)
[2021-04-07] MEDS ORDERED: KETOROLAC 30 MG/ML VIAL ONE (11:05)
[2021-04-07] MEDS ORDERED: ESTROGENS CONJ IV 25 MG/5 ML (PREMARIN) VIAL ONE (11:06)
[2021-04-07] MEDS ORDERED: WATER (STERILE) FOR INJECTION 10 ML ONE (11:06)
[2021-04-07] MEDS ORDERED: morphine INJ 10 MG/ML 1ML (SYR OR VIAL) IVP ONE (11:15)
[2021-04-07] MEDS ORDERED: HYDROmorphone 2 MG/ML VIAL (DILAUDID) IV ONE (11:15)
[2021-04-07] MEDS ORDERED: fentaNYL INJ 100 MCG/2 ML AMP IVP ONE (11:15)
[2021-04-07] MEDS: oxyCODONE/APAP 5/325MG (PERCOCET 5) TABLET PO PRN ×2 (15:09→20:18)
--- NOTE | 2021-04-07 15:11 | OPERATIVE REPORT ---
DATE OF SERVICE: 04/07/2021 PREOPERATIVE DIAGNOSES: Vaginal prolapse and stress urinary incontinence. POSTOPERATIVE DIAGNOSES: Vaginal prolapse and stress urinary incontinence. OPERATIVE PROCEDURES: Anterior and posterior vaginal repairs with enterocele repair with Dr. Flores doing pubovaginal sling and cystoscopy. OPERATIVE DESCRIPTION: With the patient in supine position under satisfactory general anesthesia, she was repositioned in the dorsal lithotomy position and prepped and draped in the usual fashion for vaginal surgery. A weighted speculum was placed in the posterior fornix of vagina. The anterior vaginal wall was grasped with two Candace clamps and an incision was made in the midline of the vaginal wall that was continued from approximately 1.5 cm from the urethra to the apex of the vagina. The bladder was carefully dissected off the muscularis of the vagina back to the pubic rami bilaterally. The endopelvic fascia and bladder wall were then plicated with 2-0 Vicryl sutures, elevating the bladder and lengthening the urethra. At this point, Dr. Flores assumed care of the patient for a pubovaginal sling and cystoscopy, which he will dictate. On completion of his portion of the procedure, I resumed care of the patient, resected the redundant anterior vaginal wall muscularis mucosa and then closed the vaginal wall with a running locked suture of 3-0 Vicryl Rapide. Posterior repair was then affected by placing Candace clamps on the perineum and the hymenal ring at 5 and 7 o'clock positions of the perineum and the hymenal ring and an inverted triangle of skin was removed from the perineal body and upright triangle was removed from the posterior vaginal floor. The rectovaginal space was entered sharply and dissected bluntly to the apex of the vagina, where it was explored for an enterocele; there was one that was reduced and then plicated with two 2-0 Vicryl pursestring sutures. Additional 2-0 Vicryl sutures were used to obliterate the rectovaginal space and to restore the perineal body. Redundant posterior vaginal muscularis mucosa was then removed sharply. Vaginal wall was closed with a running locked suture of 3-0 Vicryl Rapide, that closure was continued past the hymenal ring down the perineal body then back up subcutaneous to the hymenal ring where the suture was tied. The vaginal wall incisions were examined for hemostasis. That being complete, the vagina was filled with Estrace vaginal cream and a pack of Kerlix gauze was placed. Sponge and needle counts were correct on completion of the procedure. Rectovaginal exam confirmed no stricture or stenosis of the rectum. Sponge and needle counts were correct. Blood loss was around 200 mL. The patient tolerated the procedure well and was uneventfully awakened from general anesthesia and transferred to the recovery room in a stable condition. Job ID: [id number] DocumentID: [id number] Dictated Date: 04/07/2021 10:38:09 Gallery Or Museum Guide Date: 04/07/2021 15:10:16 Dictated By: MARGIE QURESHI MD
--- NOTE | 2021-04-07 15:30 | OPERATIVE REPORT ---
DATE OF SERVICE: 04/07/2021 PREOPERATIVE DIAGNOSIS: On my part, stress urinary incontinence. POSTOPERATIVE DIAGNOSIS: On my part, stress urinary incontinence. OPERATION PERFORMED: Pubovaginal sling and cystoscopy. SURGEON: Renu Fitzgerald MD. AUTOMOTIVE ACCESSORY INSTALLER: Andrew Hayden MD ANESTHESIA: General. COMPLICATIONS: None. DESCRIPTION OF PROCEDURE: Under satisfactory general anesthesia and after Dr. Hayden performed the first part of his surgery that he will dictate, I went ahead and inserted a Tamayo catheter draining clear urine. I passed the Desara sling on both sides using the described technique. The sling was sitting nicely under the mid urethra with no tension, no twist, passage of a curved hemostat easily between it and the underlying urethra. I removed the Tamayo catheter, inserted a cystoscope to confirm the integrity of the ureter, urethra and bladder, no foreign body and presence of the sling under the mid urethra. I left the bladder half full, removed the cystoscope, performed a manual Valsalva maneuver that was negative. Reinserted the Tamayo catheter draining clear fluid. Estimated blood loss on my part negligible and Dr. Hayden proceeded with rest of his surgery that he will dictate. Job ID: [id number] DocumentID: [id number] Dictated Date: 04/07/2021 11:15:00 Neuroradiologist Date: 04/07/2021 15:29:38 Dictated By: RENU FITZGERALD MD
[2021-04-07] MEDS: D5 LR IV SOLUTION 1,000 ML IV SCH (19:10)
[2021-04-07] MEDS: KETOROLAC 30 MG/ML VIAL IVP SCH (19:10)
[2021-04-07] MEDS: DOCUSATE SODIUM 100 MG (COLACE) CAP PO SCH (20:17)
[2021-04-08] VITALS: BP 110/54
[2021-04-08] MEDS: KETOROLAC 30 MG/ML VIAL IVP SCH ×2 (01:21→08:11)
[2021-04-08] MEDS: D5 LR IV SOLUTION 1,000 ML IV SCH (03:05)
[2021-04-08 04:00] VITALS: BP 115/66
[2021-04-08] MEDS: oxyCODONE/APAP 5/325MG (PERCOCET 5) TABLET PO PRN ×2 (05:07→11:50)
[2021-04-08] MEDS ORDERED: KETOROLAC 30 MG/ML VIAL ONE (08:07)
[2021-04-08] MEDS: DOCUSATE SODIUM 100 MG (COLACE) CAP PO SCH (08:11)
[2021-04-08 08:15] VITALS: BP 113/52
--- NOTE | 2021-04-08 08:44 | Progress Note ---
Standard Progress Note Progress Notes/Assess & Plan Date Seen by a Provider: Apr 08, 2021 Time Seen by a Provider: 08:42 Progress/Assessment & Plan This patient is without complaint. She is ambulating, tolerating oral intake well she has not voided as of yet. She does have good pain control Vital Signs Date Time Temp Pulse Resp B/P (MAP) Pulse Ox O2 Delivery O2 Flow Rate FiO2 04/08/21 04:00 36.4 90 20 115/66 (82) 95 Room Air 04/08/21 01:51 36.4 04/08/21 00:00 36.6 66 18 110/54 (72) 98 Room Air 04/07/21 21:00 97 Room Air 04/07/21 20:48 36.3 04/07/21 20:00 36.3 75 18 108/56 (73) 97 Room Air 04/07/21 15:00 36.4 79 18 124/61 (82) 98 Room Air 04/07/21 14:46 Room Air 04/07/21 12:03 36.1 75 16 119/60 (79) 98 Room Air 04/07/21 11:54 Room Air 04/07/21 11:50 36.5 14 110/58 (75) 97 Room Air 04/07/21 11:40 14 108/61 (77) 99 Room Air 04/07/21 11:30 OxyMask 2 04/07/21 11:30 14 112/65 (81) 98 OxyMask 2 04/07/21 11:20 16 90/66 (74) 100 OxyMask 2 04/07/21 11:15 OxyMask 2 04/07/21 11:10 16 131/86 (101) 100 OxyMask 2 04/07/21 11:00 18 131/95 (107) 100 OxyMask 4 04/07/21 11:00 OxyMask 4 04/07/21 10:52 OxyMask 6 04/07/21 10:52 36.1 18 112/64 (80) 100 OxyMask 6 I & O 04/08/21 07:00 Intake Total 4960 ml Output Total 2300 ml Balance 2660 ml Vital signs are stable. Patient is afebrile. The abdomen is benign. Extremities show no clubbing or cyanosis. No Homans' sign. Pelvic exam is deferred Assessment and plan Postoperative day #1 doing well plan is for routine convalescent care with discharge home when patient is ambulating, voiding, tolerating oral intake well and has good pain control Final Diagnosis Vaginal prolapse and stress urinary incontinence MARGIE QURESHI MD Apr 08, 2021 08:44
[2021-04-08] MEDS ORDERED: DOCUSATE SODIUM 100 MG (COLACE) CAP PO SCH (09:00)
[2021-04-08] MEDS ORDERED: ESTRADIOL 1 MG TAB (ESTRACE) PO SCH (09:00)
[2021-04-08] MEDS ORDERED: CIPR-225 PO (10:48)
[2021-04-08] MEDS ORDERED: IBUPROFEN 800 MG (MOTRIN) TAB PO SCH (11:00)
== END 2021-04-08 11:50 | disposition home or self-care (01) ==
LOC: SDC 07:52 → WS 11:00 → SDC 04-08 11:50
PROVIDERS: ATTEND Obstetrics & Gynecology
DX: N39.3 Stress incontinence (female) (male) (principal); N99.3 Prolapse of vaginal vault after hysterectomy; F17.210 Nicotine dependence, cigarettes, uncomplicated; Z79.899 Other long term (current) drug therapy; Z79.1 Long term (current) use of non-steroidal anti-inflammatories (NSAID); Z90.710 Acquired absence of both cervix and uterus; Z90.722 Acquired absence of ovaries, bilateral
CPT/HCPCS: 57265; 57288; 85025; 87081; 94664; C1771; 36415